=== PATIENT | male | born 1980 ===

== ENCOUNTER 2019-07-23 01:08 | Emergency (ER) | payer OTHER ==
[~2019-07-23] VITALS: Ht 182.9 cm; Wt 76.2 kg
[2019-07-23] MEDS ORDERED: ZESTRIL10 M1 (01:25)
[2019-07-23] MEDS ORDERED: NORVASC5 MG (01:25)
[2019-07-23] MEDS ORDERED: HALDOL5 MG/1 ML (01:25)
[2019-07-23] MEDS ORDERED: ATIVAN1 M1 (01:25)
[2019-07-23] MEDS ORDERED: RISPERDAL2 MG (01:25)
[2019-07-23] MEDS ORDERED: NORFLEX100MG PO (02:11)
[2019-07-23] MEDS ORDERED: KETO10TA2 PO (02:11)
== END 2019-07-23 02:23 | disposition home or self-care (01) ==
LOC: ER 01:08
DX: M54.5 Low back pain (principal)